=== PATIENT | female | born 1930 | race Two or more races ===

== ENCOUNTER 2016-10-12 06:27 | Inpatient (IN) | payer MEDICARE, MEDICAID ==
[~2016-10-12] VITALS: Ht 160 cm; Wt 98.3 kg
[~2016-10-12 06:27] MED LIST: ASPI-231 PO; FURO20TA GT; GAB400C PO; GLIP-115 PO; ISOS30TA4 PO; LEV50T PO; LOSA50TA6 PO
[2016-10-12] MEDS ORDERED: SODIUM CHLORIDE 0.9% 1,000 ML IVB ONE (06:51)
[2016-10-12 08:48] LABS: Basophils # (auto) 0 uL; Basophils % (auto) 0.4 % (0.0-2.0); Eosinophils # (auto) 0.1 uL; Eosinophils % (auto) 0.9 % (0.0-7.0); Hematocrit 37.2 % (36.0-46.0); Hemoglobin 11.7 g/dL (12.2-16.2); Lymphocytes # (auto) 1.8 uL; Lymphocytes % (auto) 18.5 % (10.0-50.0); Mean Corpuscular Hemoglobin 30.3 pg (28.0-32.0); Mean Corpuscular Hgb Conc. 31.4 g/dL (32.0-36.0); Mean Corpuscular Volume 96.5 fL (80.0-100.0); Mean Platelet Volume 8.7 fL (7.4-10.4); Monocytes # (auto) 0.7 uL; Monocytes % (auto) 6.7 % (0.0-12.0); Neutrophils # (auto) 7.2 uL; Neutrophils % (auto) 73.5 % (37.0-80.0); Platelet Count (auto) 230 10^3/uL (140-450); Red Cell Distribution Width 16.1 % (11.6-16.0); White Blood Cell 9.8 10^3/uL (4.4-10.8)
[2016-10-12 08:57] LABS: Albumin 3.3 g/dL (3.4-5.0); Anion Gap 8 (5-15); Carbon Dioxide 30 mmol/L (21-32); Chloride 104 mmol/L (98-107); Glucose 134 mg/dL (74-106); Magnesium 2.2 mg/dL (1.6-2.6); Sodium 142 mmol/L (136-145)
[2016-10-12 09:00] LABS: Alkaline Phosphatase 78 U/L (45-117); Aspartate Aminotransferase 16 U/L (15-37); BUN/Creatinine Ratio 19.5; Bilirubin, Total 0.5 mg/dL (0.2-1.0); Blood Urea Nitrogen 25 mg/dL (7-18); GFR African American 51 mL/min; GFR Non-African American 42 mL/min; Total Protein 7.1 g/dL (6.4-8.2)
[2016-10-12 10:34] LABS: Urine Bilirubin Negative (Negative); Urine Blood Negative /uL (Negative); Urine Color Yellow (Yellow); Urine Glucose Normal (Normal); Urine Ketone Negative (Negative); Urine Nitrite Negative (Negative); Urine RBC 4 /hpf (0 - 4); Urine Squamous Epithelial Cell FEW /hpf (<5); Urine Urobilinogen Normal (Negative); Urine WBC Clumps PRESENT /hpf (None Seen); Urine pH 5.5 (5.0-8.0)
[2016-10-12] MEDS ORDERED: cefTRIAXone 1GM/50ML D5W 50 ML IV ONE ×2 (12:30→12:45)
[2016-10-12] MEDS ORDERED: TEMAZEPAM 15 MG CAP PO PRN (12:45)
[2016-10-12] MEDS ORDERED: HYDROcodone-ACET 5/325MG TAB PO PRN (12:45)
[2016-10-12] MEDS ORDERED: LORazepam 0.5 MG TAB PO PRN (12:45)
[2016-10-12] MEDS ORDERED: LACTULOSE 20Gm/30ML SOLN PO PRN (12:45)
[2016-10-12] MEDS ORDERED: ACETAMINOPHEN 500 MG TAB PO PRN (12:45)
[2016-10-12] MEDS ORDERED: MORPHINE SULF INJ 2 MG/ML SYRINGE 1ML IV PRN ×2 (12:45)
[2016-10-12] MEDS ORDERED: PROMETHAZINE HCL 25 MG/ML 1ML IV PRN (12:45)
[2016-10-12] MEDS ORDERED: DEXTROSE (50%) 50ML SYRG IV PRN (12:45)
[2016-10-12] MEDS ORDERED: NITROGLYCERIN 0.4 MG SL TAB SL PRN (12:45)
[2016-10-12] MEDS ORDERED: LEVOTHYROXINE SODIUM 50 MCG TAB PO ONE (14:15)
[2016-10-12] MEDS ORDERED: ASPirin-EC 81 mg tab PO ONE (14:15)
[2016-10-12] MEDS: FAMOTIDINE 20 MG TAB PO SCH (14:56)
[2016-10-12] MEDS: GABAPENTIN 300 MG CAP PO SCH ×2 (14:56→21:41)
[2016-10-12] MEDS: ENOXAPARIN SOD 40 MG/0.4 ML SYRINGE SC SCH (14:57)
[2016-10-12 15:40] VITALS: BP 128/68
[2016-10-12 16:41] VITALS: BP 128/68
[2016-10-12] MEDS: InsuLIN REG 1unit/0.01ml Soln (100units/ml) SC SCH ×2 (17:00→22:46)
[2016-10-12] MEDS ORDERED: glipiZIDE 5 MG TAB PO SCH (17:00)
[2016-10-12] MEDS: ACCU-CHEK COMFORT CURVE STRIP VI SCH ×2 (17:25→21:41)
[2016-10-12 21:16] VITALS: BP 123/64
[2016-10-12] MEDS: ATORVASTATIN 20 MG TAB PO SCH (21:41)
[2016-10-13 04:57] VITALS: BP 152/65
[2016-10-13] MEDS: InsuLIN REG 1unit/0.01ml Soln (100units/ml) SC SCH ×4 (06:00→22:34)
[2016-10-13] MEDS: ACCU-CHEK COMFORT CURVE STRIP VI SCH ×4 (06:00→22:32)
[2016-10-13 09:00] VITALS: BP 132/61
[2016-10-13] MEDS: cefTRIAXone 1GM/50ML D5W 50 ML IV SCH (09:28)
[2016-10-13] MEDS: ASPirin-EC 81 mg tab PO SCH (09:29)
[2016-10-13] MEDS: GABAPENTIN 300 MG CAP PO SCH ×2 (09:30→22:31)
[2016-10-13] MEDS: FAMOTIDINE 20 MG TAB PO SCH (09:30)
[2016-10-13] MEDS: LEVOTHYROXINE SODIUM 50 MCG TAB PO SCH (09:30)
[2016-10-13] MEDS: ISOSORBIDE MONONITRATE 60 MG TAB PO SCH (09:30)
[2016-10-13] MEDS: ENOXAPARIN SOD 40 MG/0.4 ML SYRINGE SC SCH (09:31)
[2016-10-13] MEDS: LOSARTAN POTASSIUM 50 MG TAB PO SCH (09:36)
[2016-10-13 12:57] LABS: BUN/Creatinine Ratio 18.9; Potassium 4.3 mmol/L (3.5-5.1)
[2016-10-13 13:00] VITALS: BP 135/68
[2016-10-13 13:06] LABS: B-Type Natriuretic Peptide 70.1 pg/mL (0-100)
[2016-10-13 17:00] VITALS: BP 104/56
[2016-10-13 21:51] VITALS: BP 112/52
[2016-10-13] MEDS: ATORVASTATIN 20 MG TAB PO SCH (22:31)
[2016-10-14 05:00] VITALS: BP 113/63
[2016-10-14] MEDS: InsuLIN REG 1unit/0.01ml Soln (100units/ml) SC SCH ×4 (05:25→21:00)
[2016-10-14] MEDS: ACCU-CHEK COMFORT CURVE STRIP VI SCH ×4 (05:26→20:59)
[2016-10-14] MEDS: ENOXAPARIN SOD 40 MG/0.4 ML SYRINGE SC SCH (09:31)
[2016-10-14] MEDS: cefTRIAXone 1GM/50ML D5W 50 ML IV SCH (09:31)
[2016-10-14] MEDS: GABAPENTIN 300 MG CAP PO SCH ×2 (09:32→20:58)
[2016-10-14] MEDS: FAMOTIDINE 20 MG TAB PO SCH (09:33)
[2016-10-14] MEDS: LOSARTAN POTASSIUM 50 MG TAB PO SCH (09:33)
[2016-10-14] MEDS: ASPirin-EC 81 mg tab PO SCH (09:33)
[2016-10-14] MEDS: LEVOTHYROXINE SODIUM 50 MCG TAB PO SCH (09:33)
[2016-10-14] MEDS: ISOSORBIDE MONONITRATE 60 MG TAB PO SCH (09:34)
[2016-10-14 11:59] VITALS: BP 121/61
[2016-10-14 16:23] VITALS: BP 137/69
[2016-10-14] MEDS: ATORVASTATIN 20 MG TAB PO SCH (20:58)
[2016-10-15 05:00] VITALS: BP 128/75
[2016-10-15] MEDS: InsuLIN REG 1unit/0.01ml Soln (100units/ml) SC SCH ×3 (05:42→18:22)
[2016-10-15] MEDS: ACCU-CHEK COMFORT CURVE STRIP VI SCH ×3 (05:42→18:07)
[2016-10-15 09:00] VITALS: BP 128/54
[2016-10-15] MEDS: cefTRIAXone 1GM/50ML D5W 50 ML IV SCH (09:17)
[2016-10-15] MEDS: FAMOTIDINE 20 MG TAB PO SCH (09:30)
[2016-10-15] MEDS: ENOXAPARIN SOD 40 MG/0.4 ML SYRINGE SC SCH (09:30)
[2016-10-15] MEDS: GABAPENTIN 300 MG CAP PO SCH (09:30)
[2016-10-15] MEDS: LEVOTHYROXINE SODIUM 50 MCG TAB PO SCH (09:31)
[2016-10-15] MEDS: ASPirin-EC 81 mg tab PO SCH (09:31)
[2016-10-15] MEDS: ISOSORBIDE MONONITRATE 60 MG TAB PO SCH (09:32)
[2016-10-15] MEDS: LOSARTAN POTASSIUM 50 MG TAB PO SCH (09:32)
[2016-10-15 13:00] VITALS: BP 138/80
[2016-10-15 15:24] VITALS: BP 128/54
[2016-10-15 17:00] VITALS: BP 105/56
== END 2016-10-15 20:00 | disposition home or self-care (01) | DRG 689 ==
LOC: EDUNIT# 06:27 → EDBD 06:27 → ER 06:33 → TELE 06:34 → TELE-EAST 15:20
PROVIDERS: ADMIT Internal Medicine; ATTEND Internal Medicine
DX: N39.0 Urinary tract infection, site not specified (principal); G93.40 Encephalopathy, unspecified; I12.9 Hypertensive chronic kidney disease with stage 1 through stage 4 chronic kidney disease, or unspecified chronic kidney disease; N18.3 Chronic kidney disease, stage 3 (moderate); W19.XXXA Unspecified fall, initial encounter; M19.90 Unspecified osteoarthritis, unspecified site; E11.22 Type 2 diabetes mellitus with diabetic chronic kidney disease; E66.01 Morbid (severe) obesity due to excess calories; I25.10 Atherosclerotic heart disease of native coronary artery without angina pectoris; E11.21 Type 2 diabetes mellitus with diabetic nephropathy; E03.9 Hypothyroidism, unspecified; Z90.710 Acquired absence of both cervix and uterus; Z82.49 Family history of ischemic heart disease and other diseases of the circulatory system; Y92.009 Unspecified place in unspecified non-institutional (private) residence as the place of occurrence of the external cause
CPT/HCPCS: 36415; 70450; 71010; 73030; 80048; 80053; 80320; 81001; 82550; 82607; 82962; 83036; 83735; 83880; 84443; 85025; 85652; 87040; 93005; 94761; 95819; 96361; 96365; 97001; 97110; 97116; 97530; J0696; J1815

== ENCOUNTER 2017-04-22 13:21 | Inpatient (IN) | payer MEDICARE, MEDICAID ==
[~2017-04-22] VITALS: Ht 160 cm; Wt 95.4 kg
[~2017-04-22 13:21] MED LIST changes: +ALBU18 IN; +ALEN70TA55 PO; +ALL100T PO; -ASPI-231 PO; +ATOR1TAB PO; +BACL10TA PO; +CITA10TA70 PO; +DICL1GEL26 TD; +FLU220IH IN; -FURO20TA GT; +FURO20TA3 PO; -GAB400C PO; +GABA-494 PO; +HYDR-391 PO; -ISOS30TA4 PO; +MONT10TA34 PO; +RIVA20TA PO; +[UNRECOGNIZED DRUG - CODE] TOP
[2017-04-22 14:08] LABS: Basophils # (auto) 0 uL; Basophils % (auto) 0.3 % (0.0-2.0); CONDITION Y; Eosinophils # (auto) 0.1 uL; Eosinophils % (auto) 0.5 % (0.0-7.0); Hematocrit 35.6 % (36.0-46.0); Hemoglobin 11.8 g/dL (12.2-16.2); Lymphocytes # (auto) 4.8 uL; Lymphocytes % (auto) 33.1 % (10.0-50.0); Mean Corpuscular Hemoglobin 32.1 pg (28.0-32.0); Mean Corpuscular Hgb Conc. 33.2 g/dL (32.0-36.0); Mean Corpuscular Volume 96.5 fL (80.0-100.0); Mean Platelet Volume 8.5 fL (7.4-10.4); Monocytes # (auto) 1.3 uL; Monocytes % (auto) 9.2 % (0.0-12.0); Neutrophils # (auto) 8.2 uL; Neutrophils % (auto) 56.9 % (37.0-80.0); Platelet Count (auto) 289 10^3/uL (140-450); Red Cell Distribution Width 16.5 % (11.6-16.0); White Blood Cell 14.5 10^3/uL (4.4-10.8)
[2017-04-22] MEDS ORDERED: SODIUM CHLORIDE 0.9% 1,000 ML IV ONE (14:30)
[2017-04-22 14:32] LABS: Albumin 3.3 g/dL (3.4-5.0); Alkaline Phosphatase 54 U/L (45-117); Anion Gap 8 (5-15); Aspartate Aminotransferase 30 U/L (15-37); BUN/Creatinine Ratio 31.3; Bilirubin, Total 0.5 mg/dL (0.2-1.0); Blood Urea Nitrogen 41 mg/dL (7-18); Calcium 9.6 mg/dL (8.5-10.1); Carbon Dioxide 28 mmol/L (21-32); Chloride 102 mmol/L (98-107); GFR African American 50 mL/min; GFR Non-African American 41 mL/min; Glucose 116 mg/dL (74-106); Potassium 3.7 mmol/L (3.5-5.1); Sodium 138 mmol/L (136-145); Total Protein 6.4 g/dL (6.4-8.2)
[2017-04-22 15:25] LABS: INR 0.98 (0.9-1.15); Partial Thromboplastin Time 21.8 sec (22.64-33.71); Prothrombin Time 10.7 sec (9.37-12.3)
[2017-04-22] MEDS ORDERED: NITROGLYCERIN 0.4 MG SL TAB SL PRN (23:00)
[2017-04-22] MEDS ORDERED: ALBUTEROL SULF 2.5 MG/0.5ML(0.5%) NEB SOLN NEB PRN (23:00)
[2017-04-22] MEDS ORDERED: DOCUSATE SOD 100 MG CAP PO PRN (23:00)
[2017-04-22] MEDS ORDERED: MORPHINE SULF INJ 2 MG/ML SYRINGE 1ML IV PRN (23:00)
[2017-04-22] MEDS ORDERED: DEXTROSE (50%) 50ML SYRG IV PRN (23:00)
[2017-04-22] MEDS ORDERED: HYDROcodone-ACET 5/325MG TAB PO PRN (23:00)
[2017-04-22] MEDS ORDERED: ONDANSETRON HCL 4 MG/2 ML VIAL IV PRN (23:00)
[2017-04-23] MEDS: ACCU-CHEK COMFORT CURVE STRIP VI SCH ×4 (00:28→16:58)
[2017-04-23 01:20] LABS: Urine Bilirubin Negative (Negative); Urine Blood Negative /uL (Negative); Urine Color Yellow (Yellow); Urine Glucose Normal (Normal); Urine Ketone Negative (Negative); Urine Mucus FEW (None Seen); Urine Nitrite Negative (Negative); Urine RBC <1 /hpf (0 - 4); Urine Squamous Epithelial Cell FEW /hpf (<5); Urine Urobilinogen Normal (Negative); Urine pH 5.5 (5.0-8.0)
[2017-04-23] MEDS: InsuLIN REG 1unit/0.01ml Soln (100units/ml) SC SCH ×4 (06:00→16:58)
[2017-04-23] MEDS: FUROSEMIDE 20 MG TAB PO SCH ×2 (06:27→17:30)
[2017-04-23] MEDS: glipiZIDE 5 MG TAB PO SCH ×2 (06:42→17:30)
[2017-04-23] MEDS: LEVOTHYROXINE SODIUM 50 MCG TAB PO SCH (06:42)
[2017-04-23] MEDS ORDERED: PATIENTS OWN MEDICATION (xarelto 20 MG) PO SCH (10:00)
[2017-04-23] MEDS: MONTELUKAST SODIUM 10 MG TAB PO SCH (10:16)
[2017-04-23] MEDS: FAMOTIDINE 20 MG TAB PO SCH ×2 (10:16→22:07)
[2017-04-23] MEDS: LOSARTAN POTASSIUM 50 MG TAB PO SCH (10:16)
[2017-04-23] MEDS ORDERED: LORazepam 2MG/ML-1ML VIAL IV PRN (14:15)
[2017-04-23 14:50] LABS: Basophils # (auto) 0 uL; Basophils % (auto) 0.2 % (0.0-2.0); CONDITION Y; Eosinophils # (auto) 0.1 uL; Eosinophils % (auto) 0.8 % (0.0-7.0); Hematocrit 37.4 % (36.0-46.0); Hemoglobin 12.2 g/dL (12.2-16.2); Lymphocytes # (auto) 2.4 uL; Lymphocytes % (auto) 19.5 % (10.0-50.0); Mean Corpuscular Hemoglobin 31.7 pg (28.0-32.0); Mean Corpuscular Hgb Conc. 32.6 g/dL (32.0-36.0); Mean Corpuscular Volume 97.2 fL (80.0-100.0); Mean Platelet Volume 8.5 fL (7.4-10.4); Monocytes # (auto) 0.9 uL; Monocytes % (auto) 7.3 % (0.0-12.0); Neutrophils % (auto) 72.2 % (37.0-80.0); Platelet Count (auto) 275 10^3/uL (140-450); Red Cell Distribution Width 17.2 % (11.6-16.0); White Blood Cell 12.5 10^3/uL (4.4-10.8)
[2017-04-23 15:30] LABS: Cholesterol 154 mg/dL (< 200); HDL Cholesterol 48 mg/dL (40-59); LDL Cholesterol 74 mg/dL (< 100); Triglycerides 274 mg/dL (< 150)
[2017-04-23 15:43] LABS: Albumin 3.3 g/dL (3.4-5.0); BUN/Creatinine Ratio 35.5; Bilirubin, Total 0.6 mg/dL (0.2-1.0); Calcium 9.2 mg/dL (8.5-10.1); Potassium 3.8 mmol/L (3.5-5.1); Total Protein 6.8 g/dL (6.4-8.2)
[2017-04-23 15:46] VITALS: BP 132/62
[2017-04-23] MEDS ORDERED: ASPI81CH43 GT (16:16)
[2017-04-23] MEDS ORDERED: POTA10TA51 PO (16:24)
[2017-04-23 17:00] VITALS: BP 132/62
[2017-04-23] MEDS: RIVAROXABAN 20 MG TAB PO SCH (17:32)
[2017-04-23 19:58] VITALS: BP 144/66
[2017-04-23 22:00] VITALS: BP 124/64
[2017-04-23] MEDS: ATORVASTATIN 20 MG TAB PO SCH (22:06)
[2017-04-24 04:30] VITALS: BP 150/67
[2017-04-24] MEDS: InsuLIN REG 1unit/0.01ml Soln (100units/ml) SC SCH ×4 (06:00→18:00)
[2017-04-24] MEDS: ACCU-CHEK COMFORT CURVE STRIP VI SCH ×4 (06:19→18:08)
[2017-04-24] MEDS: FUROSEMIDE 20 MG TAB PO SCH ×2 (06:36→18:07)
[2017-04-24] MEDS: glipiZIDE 5 MG TAB PO SCH ×2 (06:37→18:08)
[2017-04-24] MEDS: LEVOTHYROXINE SODIUM 50 MCG TAB PO SCH (06:37)
[2017-04-24 09:00] VITALS: BP 134/62
[2017-04-24 10:11] LABS: Temperature: 23.3 C (20.0-25.0)
[2017-04-24] MEDS: MONTELUKAST SODIUM 10 MG TAB PO SCH (10:29)
[2017-04-24] MEDS: FAMOTIDINE 20 MG TAB PO SCH ×2 (10:29→21:37)
[2017-04-24] MEDS: LOSARTAN POTASSIUM 50 MG TAB PO SCH (10:29)
[2017-04-24 13:00] VITALS: BP 142/70
[2017-04-24 17:10] VITALS: BP 112/55
[2017-04-24 20:00] VITALS: BP 110/59
[2017-04-24] MEDS: TEMAZEPAM 15 MG CAP PO PRN (21:36)
[2017-04-24] MEDS: ATORVASTATIN 20 MG TAB PO SCH (21:37)
[2017-04-24] MEDS: RIVAROXABAN 20 MG TAB PO SCH (21:37)
[2017-04-24 21:51] VITALS: BP 110/59
[2017-04-25] VITALS (7 sets, daily range): BP systolic 124–186; BP diastolic 54–78
[2017-04-25] MEDS: glipiZIDE 5 MG TAB PO SCH ×2 (05:31→18:40)
[2017-04-25] MEDS: FUROSEMIDE 20 MG TAB PO SCH ×2 (05:31→18:41)
[2017-04-25] MEDS: LEVOTHYROXINE SODIUM 50 MCG TAB PO SCH (05:32)
[2017-04-25] MEDS: InsuLIN REG 1unit/0.01ml Soln (100units/ml) SC SCH ×4 (05:33→18:00)
[2017-04-25] MEDS: ACETAMINOPHEN 325 MG TAB PO PRN (05:33)
[2017-04-25] MEDS: ACCU-CHEK COMFORT CURVE STRIP VI SCH ×4 (06:00→18:00)
[2017-04-25] MEDS: FAMOTIDINE 20 MG TAB PO SCH ×2 (10:39→21:18)
[2017-04-25] MEDS: MONTELUKAST SODIUM 10 MG TAB PO SCH (10:40)
[2017-04-25] MEDS: LOSARTAN POTASSIUM 50 MG TAB PO SCH (10:40)
[2017-04-25] MEDS: ATORVASTATIN 20 MG TAB PO SCH (21:21)
[2017-04-26] VITALS (8 sets, daily range): BP systolic 105–138; BP diastolic 53–73
[2017-04-26] MEDS: ACCU-CHEK COMFORT CURVE STRIP VI SCH ×5 (00:29→23:43)
[2017-04-26] MEDS: TEMAZEPAM 15 MG CAP PO PRN (00:43)
[2017-04-26] MEDS: InsuLIN REG 1unit/0.01ml Soln (100units/ml) SC SCH ×5 (06:00→23:43)
[2017-04-26] MEDS: FUROSEMIDE 20 MG TAB PO SCH ×2 (06:21→17:55)
[2017-04-26] MEDS: glipiZIDE 5 MG TAB PO SCH ×2 (06:22→17:56)
[2017-04-26] MEDS: LEVOTHYROXINE SODIUM 50 MCG TAB PO SCH (06:23)
[2017-04-26] MEDS: FAMOTIDINE 20 MG TAB PO SCH ×2 (11:09→21:01)
[2017-04-26] MEDS: LOSARTAN POTASSIUM 50 MG TAB PO SCH (11:09)
[2017-04-26] MEDS: MONTELUKAST SODIUM 10 MG TAB PO SCH (11:09)
[2017-04-26] MEDS: ENOXAPARIN SOD 40 MG/0.4 ML SYRINGE SC SCH (11:09)
[2017-04-26 13:48] LABS: BUN/Creatinine Ratio 25.7; Calcium 9.7 mg/dL (8.5-10.1)
[2017-04-26] MEDS: ATORVASTATIN 20 MG TAB PO SCH (21:01)
[2017-04-27] VITALS (7 sets, daily range): BP systolic 93–156; BP diastolic 47–99
[2017-04-27] MEDS: ACCU-CHEK COMFORT CURVE STRIP VI SCH ×3 (05:41→18:27)
[2017-04-27] MEDS: InsuLIN REG 1unit/0.01ml Soln (100units/ml) SC SCH ×3 (05:59→18:00)
[2017-04-27] MEDS: FUROSEMIDE 20 MG TAB PO SCH ×2 (06:25→18:40)
[2017-04-27] MEDS: glipiZIDE 5 MG TAB PO SCH ×2 (06:25→18:39)
[2017-04-27] MEDS: LEVOTHYROXINE SODIUM 50 MCG TAB PO SCH (06:26)
[2017-04-27] MEDS: ENOXAPARIN SOD 40 MG/0.4 ML SYRINGE SC SCH (09:52)
[2017-04-27] MEDS: FAMOTIDINE 20 MG TAB PO SCH ×2 (09:52→21:35)
[2017-04-27] MEDS: MONTELUKAST SODIUM 10 MG TAB PO SCH (09:52)
[2017-04-27] MEDS: LOSARTAN POTASSIUM 50 MG TAB PO SCH (09:53)
[2017-04-27] MEDS: TEMAZEPAM 15 MG CAP PO PRN (21:18)
[2017-04-27] MEDS: ATORVASTATIN 20 MG TAB PO SCH (21:35)
[2017-04-27] MEDS: DONEPEZIL HYDROCHLORIDE 5 MG TAB PO SCH (21:36)
[2017-04-27] MEDS: ACETAMINOPHEN 325 MG TAB PO PRN (21:39)
[2017-04-28] VITALS (7 sets, daily range): BP systolic 110–123; BP diastolic 50–61
[2017-04-28] MEDS: InsuLIN REG 1unit/0.01ml Soln (100units/ml) SC SCH ×5 (06:00→23:43)
[2017-04-28] MEDS: ACETAMINOPHEN 325 MG TAB PO PRN ×3 (06:18→22:03)
[2017-04-28] MEDS: FUROSEMIDE 20 MG TAB PO SCH ×2 (06:19→18:46)
[2017-04-28] MEDS: ACCU-CHEK COMFORT CURVE STRIP VI SCH ×5 (06:19→23:43)
[2017-04-28] MEDS: glipiZIDE 5 MG TAB PO SCH ×2 (06:34→18:00)
[2017-04-28] MEDS: LEVOTHYROXINE SODIUM 50 MCG TAB PO SCH (06:34)
[2017-04-28] MEDS: ENOXAPARIN SOD 40 MG/0.4 ML SYRINGE SC SCH (10:46)
[2017-04-28] MEDS: MONTELUKAST SODIUM 10 MG TAB PO SCH (10:46)
[2017-04-28] MEDS: LOSARTAN POTASSIUM 50 MG TAB PO SCH (10:47)
[2017-04-28] MEDS: FAMOTIDINE 20 MG TAB PO SCH ×2 (10:47→22:03)
[2017-04-28] MEDS: TEMAZEPAM 15 MG CAP PO PRN (22:03)
[2017-04-28] MEDS: DONEPEZIL HYDROCHLORIDE 5 MG TAB PO SCH (22:03)
[2017-04-28] MEDS: ATORVASTATIN 20 MG TAB PO SCH (22:03)
[2017-04-29] VITALS (7 sets, daily range): BP systolic 114–152; BP diastolic 55–75
[2017-04-29] MEDS: InsuLIN REG 1unit/0.01ml Soln (100units/ml) SC SCH ×4 (06:00→23:53)
[2017-04-29] MEDS: FUROSEMIDE 20 MG TAB PO SCH ×2 (06:14→19:43)
[2017-04-29] MEDS: ACCU-CHEK COMFORT CURVE STRIP VI SCH ×4 (06:14→23:53)
[2017-04-29] MEDS: glipiZIDE 5 MG TAB PO SCH ×2 (06:31→18:00)
[2017-04-29] MEDS: LEVOTHYROXINE SODIUM 50 MCG TAB PO SCH (06:31)
[2017-04-29] MEDS: ENOXAPARIN SOD 40 MG/0.4 ML SYRINGE SC SCH (09:51)
[2017-04-29] MEDS: LOSARTAN POTASSIUM 50 MG TAB PO SCH (09:51)
[2017-04-29] MEDS: FAMOTIDINE 20 MG TAB PO SCH ×2 (09:51→21:36)
[2017-04-29] MEDS: MONTELUKAST SODIUM 10 MG TAB PO SCH (09:51)
[2017-04-29] MEDS: ATORVASTATIN 20 MG TAB PO SCH (21:36)
[2017-04-29] MEDS: DONEPEZIL HYDROCHLORIDE 5 MG TAB PO SCH (21:36)
[2017-04-30 05:00] VITALS: BP 121/65
[2017-04-30] MEDS: FUROSEMIDE 20 MG TAB PO SCH (05:47)
[2017-04-30] MEDS: ACCU-CHEK COMFORT CURVE STRIP VI SCH ×3 (05:47→18:09)
[2017-04-30] MEDS: InsuLIN REG 1unit/0.01ml Soln (100units/ml) SC SCH ×3 (05:47→18:00)
[2017-04-30] MEDS: LEVOTHYROXINE SODIUM 50 MCG TAB PO SCH (06:42)
[2017-04-30] MEDS: glipiZIDE 5 MG TAB PO SCH (06:42)
[2017-04-30 07:02] LABS: Basophils # (auto) 0.1 uL; Basophils % (auto) 0.8 % (0.0-2.0); CONDITION Y; Eosinophils # (auto) 0.1 uL; Eosinophils % (auto) 0.8 % (0.0-7.0); Hematocrit 34.6 % (36.0-46.0); Hemoglobin 11.4 g/dL (12.2-16.2); Lymphocytes # (auto) 2.2 uL; Lymphocytes % (auto) 27.2 % (10.0-50.0); Mean Corpuscular Hemoglobin 31.9 pg (28.0-32.0); Mean Corpuscular Hgb Conc. 32.9 g/dL (32.0-36.0); Mean Platelet Volume 9.2 fL (7.4-10.4); Monocytes # (auto) 0.8 uL; Monocytes % (auto) 10.1 % (0.0-12.0); Neutrophils % (auto) 61.1 % (37.0-80.0); Platelet Count (auto) 189 10^3/uL (140-450); Red Cell Distribution Width 16.5 % (11.6-16.0); White Blood Cell 8.1 10^3/uL (4.4-10.8)
[2017-04-30 07:29] LABS: Albumin 3.2 g/dL (3.4-5.0); BUN/Creatinine Ratio 14.8; Bilirubin, Total 0.7 mg/dL (0.2-1.0); Calcium 9.3 mg/dL (8.5-10.1); Potassium 3.8 mmol/L (3.5-5.1); Total Protein 6.4 g/dL (6.4-8.2)
[2017-04-30 08:47] VITALS: BP 102/48
[2017-04-30] MEDS: MONTELUKAST SODIUM 10 MG TAB PO SCH (10:00)
[2017-04-30] MEDS: LOSARTAN POTASSIUM 50 MG TAB PO SCH (10:00)
[2017-04-30] MEDS: ENOXAPARIN SOD 40 MG/0.4 ML SYRINGE SC SCH (10:00)
[2017-04-30] MEDS: FAMOTIDINE 20 MG TAB PO SCH (10:00)
[2017-04-30 12:06] VITALS: BP 102/48
[2017-04-30 13:08] VITALS: BP 139/62
[2017-04-30 16:50] VITALS: BP 126/58
== END 2017-04-30 18:55 | disposition home or self-care (01) | DRG 42 ==
LOC: EDBD 13:21 → ER 13:26 → TELE 23:29 → TELE-EAST 04-23 15:37
PROVIDERS: ADMIT Nurse Practitioner; ATTEND Internal Medicine Pulmonary Disease
DX: G30.9 Alzheimer's disease, unspecified (principal); E44.0 Moderate protein-calorie malnutrition; E11.21 Type 2 diabetes mellitus with diabetic nephropathy; I13.0 Hypertensive heart and chronic kidney disease with heart failure and stage 1 through stage 4 chronic kidney disease, or unspecified chronic kidney disease; I50.9 Heart failure, unspecified; E66.01 Morbid (severe) obesity due to excess calories; E78.5 Hyperlipidemia, unspecified; F02.80 Dementia in other diseases classified elsewhere, unspecified severity, without behavioral disturbance, psychotic disturbance, mood disturbance, and anxiety; N18.3 Chronic kidney disease, stage 3 (moderate); E03.9 Hypothyroidism, unspecified; E11.22 Type 2 diabetes mellitus with diabetic chronic kidney disease; F41.9 Anxiety disorder, unspecified; I25.10 Atherosclerotic heart disease of native coronary artery without angina pectoris; J44.9 Chronic obstructive pulmonary disease, unspecified; J98.4 Other disorders of lung; M19.90 Unspecified osteoarthritis, unspecified site; N39.0 Urinary tract infection, site not specified; Z79.899 Other long term (current) drug therapy; Z82.49 Family history of ischemic heart disease and other diseases of the circulatory system; Z86.73 Personal history of transient ischemic attack (TIA), and cerebral infarction without residual deficits; Z90.710 Acquired absence of both cervix and uterus
CPT/HCPCS: 36415; 70450; 70551; 71010; 80048; 80053; 80061; 81001; 82607; 82746; 82962; 83735; 84439; 84443; 84484; 85025; 85610; 85730; 87040; 87081; 93005; 93886; 94761; 95819; 96360; 96361; 96372; 97116; 97530; J1815

== ENCOUNTER 2017-07-24 15:05 | Emergency (ER) | payer MEDICAID, MEDICARE ==
[~2017-07-24] VITALS: Ht 152.4 cm; Wt 108.9 kg
[~2017-07-24 15:05] MED LIST changes: +ASPI81CH43 GT; +POTA10TA51 PO
[2017-07-24 17:13] LABS: Basophils # (auto) 0.1 uL; Basophils % (auto) 1.3 % (0.0-2.0); Eosinophils # (auto) 0.1 uL; Eosinophils % (auto) 1.2 % (0.0-7.0); Hematocrit 36.2 % (36.0-46.0); Hemoglobin 11.3 g/dL (12.2-16.2); Lymphocytes # (auto) 2.3 uL; Lymphocytes % (auto) 23.3 % (10.0-50.0); Mean Corpuscular Hemoglobin 27.8 pg (28.0-32.0); Mean Corpuscular Hgb Conc. 31.3 g/dL (32.0-36.0); Mean Corpuscular Volume 88.9 fL (80.0-100.0); Mean Platelet Volume 8.2 fL (6.9-10.8); Monocytes # (auto) 0.8 uL; Neutrophils # (auto) 6.6 uL; Neutrophils % (auto) 66.2 % (37.0-80.0); Platelet Count (auto) 227 10^3/uL (140-450); Red Cell Distribution Width 19.1 % (11.8-14.3)
[2017-07-24 17:35] LABS: Albumin 3.5 g/dL (3.4-5.0); BUN/Creatinine Ratio 26.4; Bilirubin, Total 0.4 mg/dL (0.2-1.0); Calcium 9.7 mg/dL (8.5-10.1); Potassium 3.7 mmol/L (3.5-5.1); Total Protein 7.2 g/dL (6.4-8.2)
[2017-07-25 02:33] VITALS: BP 134/69
== END 2017-07-25 03:11 | disposition home or self-care (01) ==
LOC: ER 15:05
DX: F03.90 Unspecified dementia, unspecified severity, without behavioral disturbance, psychotic disturbance, mood disturbance, and anxiety (principal); R42 Dizziness and giddiness; I25.10 Atherosclerotic heart disease of native coronary artery without angina pectoris; I11.0 Hypertensive heart disease with heart failure; I50.9 Heart failure, unspecified; E11.9 Type 2 diabetes mellitus without complications; E78.5 Hyperlipidemia, unspecified; E07.9 Disorder of thyroid, unspecified; Z90.710 Acquired absence of both cervix and uterus; Z90.49 Acquired absence of other specified parts of digestive tract
CPT/HCPCS: 36415; 70450; 80053; 85025

== ENCOUNTER 2017-12-25 04:19 | Inpatient (IN) | payer MEDICARE, MEDICAID ==
[~2017-12-25] VITALS: Ht 152.4 cm; Wt 98.4 kg
[~2017-12-25 04:19] MED LIST changes: -GABA-494 PO; +GABA100C9 PO; -HYDR-391 PO; +HYDR-392 PO
[2017-12-25 05:45] LABS: Basophils # (auto) 0.1 uL; Basophils % (auto) 0.8 % (0.0-2.0); Eosinophils # (auto) 0.1 uL; Hematocrit 42.2 % (36.0-46.0); Hemoglobin 13.9 g/dL (12.2-16.2); Lymphocytes # (auto) 2.7 uL; Lymphocytes % (auto) 31.9 % (10.0-50.0); Mean Corpuscular Hemoglobin 32.3 pg (28.0-32.0); Mean Corpuscular Hgb Conc. 32.9 g/dL (32.0-36.0); Mean Corpuscular Volume 98.1 fL (80.0-100.0); Monocytes # (auto) 0.7 uL; Monocytes % (auto) 8.8 % (0.0-12.0); Neutrophils # (auto) 4.8 uL; Neutrophils % (auto) 57.5 % (37.0-80.0); Nucleated Red Blood Cells % 0.2 %; Platelet Count (auto) 190 10^3/uL (140-450); Red Cell Distribution Width 15.6 % (11.8-14.3); White Blood Cell 8.4 10^3/uL (4.4-10.8)
[2017-12-25 06:12] LABS: Alanine Aminotransferase 37 U/L (13-56); Albumin 2.9 g/dL (3.4-5.0); Anion Gap 6 (5-15); Aspartate Aminotransferase 20 U/L (15-37); BUN/Creatinine Ratio 27.6; Blood Urea Nitrogen 32 mg/dL (7-18); Calcium 9.8 mg/dL (8.5-10.1); Carbon Dioxide 27 mmol/L (21-32); Chloride 106 mmol/L (98-107); GFR African American 57 mL/min; GFR Non-African American 47 mL/min; Glucose 130 mg/dL (74-106); Magnesium 2.3 mg/dL (1.6-2.6); Sodium 139 mmol/L (136-145)
[2017-12-25 06:14] LABS: Alkaline Phosphatase 64 U/L (45-117); Bilirubin, Total 0.4 mg/dL (0.2-1.0); Total Protein 6.3 g/dL (6.4-8.2)
[2017-12-25] MEDS ORDERED: NITROGLYCERIN 0.2MG/HR TOPICAL PATCH TD ONE (10:15)
[2017-12-25] MEDS ORDERED: ALBUTEROL SULF 2.5 MG/0.5ML(0.5%) NEB SOLN NEB PRN (10:15)
[2017-12-25] MEDS ORDERED: BACLOFEN 10 MG TAB PO PRN (10:15)
[2017-12-25] MEDS ORDERED: ONDANSETRON HCL 4 MG/2 ML VIAL IV PRN (10:15)
[2017-12-25] MEDS ORDERED: METOPROLOL TARTRATE 25 MG TAB PO ONE (10:15)
[2017-12-25] MEDS ORDERED: IPRATROPIUM BROM 0.5 MG/2.5ML INH SOL NEB PRN (10:15)
[2017-12-25] MEDS ORDERED: NITROGLYCERIN 0.4 MG SL TAB SL PRN (10:15)
[2017-12-25] MEDS ORDERED: MORPHINE SULFATE 4 MG/ML SYR/VIAL IV PRN (10:15)
[2017-12-25] MEDS ORDERED: DEXTROSE (50%) 50ML SYRG IV PRN (10:30)
[2017-12-25] MEDS: CITALOPRAM HYDROBR 20 MG TAB PO SCH (11:04)
[2017-12-25] MEDS: ASPirin 81 mg TAB PO SCH (11:04)
[2017-12-25] MEDS: LOSARTAN POTASSIUM 50 MG TAB PO SCH (11:04)
[2017-12-25] MEDS: GABAPENTIN 100 MG CAP PO SCH ×2 (11:04→21:47)
[2017-12-25] MEDS: LEVOTHYROXINE SODIUM 50 MCG TAB PO SCH (11:05)
[2017-12-25] MEDS: MONTELUKAST SODIUM 10 MG TAB PO SCH (11:05)
[2017-12-25 11:11] LABS: INR 0.98 (0.9-1.15); Partial Thromboplastin Time 27.5 sec (22.64-33.71); Prothrombin Time 10.7 sec (9.37-12.3)
[2017-12-25 11:17] LABS: Cholesterol 183 mg/dL (< 200); HDL Cholesterol 48 mg/dL (40-59); LDL Cholesterol 123 mg/dL (< 100); Triglycerides 181 mg/dL (< 150)
[2017-12-25] MEDS: InsuLIN REG 1unit/0.01ml Soln (100units/ml) SC SCH ×3 (11:30→21:57)
[2017-12-25] MEDS: ACCU-CHEK COMFORT CURVE STRIP VI SCH ×3 (11:40→21:58)
[2017-12-25 15:02] VITALS: BP 141/74
[2017-12-25 16:06] VITALS: BP 121/61
[2017-12-25 16:24] VITALS: BP 121/61
[2017-12-25] MEDS: RIVAROXABAN 20 MG TAB PO SCH (17:29)
[2017-12-25] MEDS ORDERED: BACL10TA PO (17:56)
[2017-12-25] MEDS ORDERED: ALLO300T2 PO (17:56)
[2017-12-25] MEDS ORDERED: DONE5TAB31 PO (17:56)
[2017-12-25] MEDS ORDERED: LOSA50TA6 PO (17:56)
[2017-12-25] MEDS ORDERED: FLU220IH INH (17:56)
[2017-12-25] MEDS ORDERED: ALBUAER3 IN (17:56)
[2017-12-25] MEDS ORDERED: POTA10TA51 PO (17:56)
[2017-12-25] MEDS ORDERED: FURO40TA PO (17:56)
[2017-12-25] MEDS ORDERED: ALEN35TA18 PO (17:56)
[2017-12-25 21:30] VITALS: BP 110/53
[2017-12-25] MEDS: METOPROLOL TARTRATE 25 MG TAB PO SCH (21:47)
[2017-12-25] MEDS: ATORVASTATIN 20 MG TAB PO SCH (21:47)
[2017-12-25] MEDS: MORPHINE SULFATE 4 MG/ML SYR/VIAL IV PRN (21:54)
[2017-12-26 05:00] VITALS: BP 114/55
[2017-12-26 05:59] LABS: Basophils # (auto) 0.1 uL; Basophils % (auto) 1.2 % (0.0-2.0); Eosinophils # (auto) 0.1 uL; Eosinophils % (auto) 0.8 % (0.0-7.0); Hematocrit 41.5 % (36.0-46.0); Hemoglobin 13.5 g/dL (12.2-16.2); Lymphocytes # (auto) 2.4 uL; Lymphocytes % (auto) 28.9 % (10.0-50.0); Mean Corpuscular Hemoglobin 31.8 pg (28.0-32.0); Mean Corpuscular Hgb Conc. 32.5 g/dL (32.0-36.0); Mean Corpuscular Volume 97.8 fL (80.0-100.0); Monocytes # (auto) 0.7 uL; Monocytes % (auto) 8.8 % (0.0-12.0); Neutrophils % (auto) 60.3 % (37.0-80.0); Nucleated Red Blood Cells % 0.1 %; Platelet Count (auto) 188 10^3/uL (140-450); Red Blood Cells 4.24 10^6/uL (4.0-5.20); Red Cell Distribution Width 15.8 % (11.8-14.3); White Blood Cell 8.4 10^3/uL (4.4-10.8)
[2017-12-26] MEDS: InsuLIN REG 1unit/0.01ml Soln (100units/ml) SC SCH ×4 (06:14→21:44)
[2017-12-26] MEDS: ACCU-CHEK COMFORT CURVE STRIP VI SCH ×4 (06:14→21:37)
[2017-12-26 06:18] LABS: Calcium 10.4 mg/dL (8.5-10.1); Potassium 4.1 mmol/L (3.5-5.1)
[2017-12-26] MEDS ORDERED: ADENOSINE 79 MG in GIVE UN-DILUTED 0 ML IV STA (08:36)
[2017-12-26 09:00] VITALS: BP 133/64
[2017-12-26 09:49] VITALS: BP 126/51
[2017-12-26] MEDS ORDERED: CITALOPRAM HYDROBROMIDE 10 MG PO SCH (10:00)
[2017-12-26] MEDS ORDERED: NITROGLYCERIN 0.2MG/HR TOPICAL PATCH TD SCH (10:00)
[2017-12-26] MEDS ORDERED: FUROSEMIDE 40 MG TAB PO ONE (10:45)
[2017-12-26] MEDS ORDERED: POTASSIUM CHL 20 Meq TABLET PO ONE (10:45)
[2017-12-26] MEDS: METOPROLOL TARTRATE 25 MG TAB PO SCH ×2 (10:51→21:37)
[2017-12-26] MEDS: GABAPENTIN 100 MG CAP PO SCH ×2 (11:11→21:37)
[2017-12-26] MEDS: MONTELUKAST SODIUM 10 MG TAB PO SCH (11:11)
[2017-12-26] MEDS: LEVOTHYROXINE SODIUM 50 MCG TAB PO SCH (11:11)
[2017-12-26] MEDS: ASPirin 81 mg TAB PO SCH (11:12)
[2017-12-26] MEDS: CITALOPRAM HYDROBR 20 MG TAB PO SCH (11:12)
[2017-12-26] MEDS: LOSARTAN POTASSIUM 50 MG TAB PO SCH (11:13)
[2017-12-26 13:00] VITALS: BP 131/61
[2017-12-26 17:00] VITALS: BP 128/66
[2017-12-26] MEDS: RIVAROXABAN 20 MG TAB PO SCH (17:47)
[2017-12-26] MEDS: ATORVASTATIN 20 MG TAB PO SCH (21:36)
[2017-12-26] MEDS ORDERED: DONEPEZIL HYDROCHLORIDE 5 MG TAB PO SCH (22:00)
[2017-12-26 22:45] VITALS: BP 124/64
[2017-12-27 05:06] VITALS: BP 149/74
[2017-12-27] MEDS ORDERED: diphenhdrAMINE HCL 50 MG/1 ML VL IV ONE (06:00)
[2017-12-27] MEDS: InsuLIN REG 1unit/0.01ml Soln (100units/ml) SC SCH ×3 (06:21→17:00)
[2017-12-27] MEDS: ACCU-CHEK COMFORT CURVE STRIP VI SCH ×3 (06:21→18:02)
[2017-12-27 07:07] LABS: Basophils # (auto) 0.1 uL; Basophils % (auto) 0.9 % (0.0-2.0); Eosinophils # (auto) 0.1 uL; Eosinophils % (auto) 0.6 % (0.0-7.0); Hematocrit 40.8 % (36.0-46.0); Hemoglobin 13.4 g/dL (12.2-16.2); Lymphocytes # (auto) 2.2 uL; Lymphocytes % (auto) 27.5 % (10.0-50.0); Mean Corpuscular Hgb Conc. 32.9 g/dL (32.0-36.0); Mean Corpuscular Volume 97.1 fL (80.0-100.0); Monocytes # (auto) 0.8 uL; Monocytes % (auto) 9.7 % (0.0-12.0); Neutrophils # (auto) 4.9 uL; Neutrophils % (auto) 61.3 % (37.0-80.0); Nucleated Red Blood Cells % 0.1 %; Platelet Count (auto) 157 10^3/uL (140-450); Red Cell Distribution Width 15.9 % (11.8-14.3); White Blood Cell 8.1 10^3/uL (4.4-10.8)
[2017-12-27 07:15] LABS: BUN/Creatinine Ratio 27.7; Calcium 9.4 mg/dL (8.5-10.1)
[2017-12-27] MEDS: HYDROcodone-ACET 5/325MG TAB PO PRN ×2 (07:48→16:30)
[2017-12-27] MEDS: MORPHINE SULFATE 4 MG/ML SYR/VIAL IV PRN ×3 (08:40→15:55)
[2017-12-27 08:45] VITALS: BP 130/73
[2017-12-27] MEDS ORDERED: IOHEXOL 350 MG/ML 100ML IJ ONE (09:59)
[2017-12-27] MEDS ORDERED: LIDOCAINE HCL 2 %PF INJ 10ML AMP IJ ONE (09:59)
[2017-12-27] MEDS ORDERED: FUROSEMIDE 40 MG TAB PO SCH (10:00)
[2017-12-27] MEDS ORDERED: POTASSIUM CHL 20 Meq TABLET PO SCH (10:00)
[2017-12-27] MEDS ORDERED: SODIUM CHL 0.9% 0 ML ONE (10:27)
[2017-12-27] MEDS ORDERED: MIDAZOLAM HCL 1MG/1ML-2 ML VIAL ONE (10:27)
[2017-12-27] MEDS ORDERED: fentaNYL CITRATE 100 MCG/2 ML VL ONE (10:27)
[2017-12-27] MEDS ORDERED: ANGIOMAX 250 MG VIAL IV ONE (10:27)
[2017-12-27 12:18] VITALS: BP 143/77
[2017-12-27] MEDS: CITALOPRAM HYDROBR 20 MG TAB PO SCH (13:23)
[2017-12-27] MEDS: LEVOTHYROXINE SODIUM 50 MCG TAB PO SCH (13:24)
[2017-12-27] MEDS: GABAPENTIN 100 MG CAP PO SCH (13:25)
[2017-12-27] MEDS: MONTELUKAST SODIUM 10 MG TAB PO SCH (13:25)
[2017-12-27] MEDS: LOSARTAN POTASSIUM 50 MG TAB PO SCH (13:26)
[2017-12-27] MEDS: METOPROLOL TARTRATE 25 MG TAB PO SCH (13:26)
[2017-12-27] MEDS: ASPirin 81 mg TAB PO SCH (13:28)
[2017-12-27 14:21] VITALS: BP 143/77
[2017-12-27] MEDS: RIVAROXABAN 20 MG TAB PO SCH (18:09)
== END 2017-12-27 19:15 | disposition home or self-care (01) | DRG 286 ==
LOC: EDBD 04:19 → ER 04:21 → TELE 04:22 → TELE-EAST 15:38
PROVIDERS: ADMIT Internal Medicine; ATTEND Internal Medicine
PROC: 4A023N7 Measurement of Cardiac Sampling and Pressure, Left Heart, Percutaneous Approach (ICD-10-PCS; principal; 2017-12-27)
PROC: B2111ZZ Fluoroscopy of Multiple Coronary Arteries using Low Osmolar Contrast (ICD-10-PCS; 2017-12-27)
PROC: B2151ZZ Fluoroscopy of Left Heart using Low Osmolar Contrast (ICD-10-PCS; 2017-12-27)
DX: I13.0 Hypertensive heart and chronic kidney disease with heart failure and stage 1 through stage 4 chronic kidney disease, or unspecified chronic kidney disease (principal); I50.33 Acute on chronic diastolic (congestive) heart failure; E44.0 Moderate protein-calorie malnutrition; D68.69 Other thrombophilia; E11.22 Type 2 diabetes mellitus with diabetic chronic kidney disease; E66.01 Morbid (severe) obesity due to excess calories; Z68.41 Body mass index [BMI] 40.0-44.9, adult; N18.3 Chronic kidney disease, stage 3 (moderate); I48.91 Unspecified atrial fibrillation; F03.90 Unspecified dementia, unspecified severity, without behavioral disturbance, psychotic disturbance, mood disturbance, and anxiety; E03.9 Hypothyroidism, unspecified; M10.9 Gout, unspecified; J45.909 Unspecified asthma, uncomplicated; Z79.82 Long term (current) use of aspirin; Z82.49 Family history of ischemic heart disease and other diseases of the circulatory system; Z90.49 Acquired absence of other specified parts of digestive tract; Z90.710 Acquired absence of both cervix and uterus; Z79.899 Other long term (current) drug therapy
CPT/HCPCS: 36415; 71045; 80048; 80053; 80061; 82962; 83036; 83735; 83880; 84443; 84484; 85025; 85379; 85610; 85652; 85730; 86141; 86850; 86900; 86901; 93005; 93017; 93306; 93458; 99152; 99291; J0153; J1815; J2250

== ENCOUNTER 2019-05-01 12:17 | Emergency (ER) | payer MEDICARE, MEDICAID ==
[~2019-05-01] VITALS: Ht 152.4 cm; Wt 93.0 kg
[~2019-05-01 12:17] MED LIST changes: -ALBU18 IN; +ALBUAER3 IN; +ALEN35TA18 PO; -ALEN70TA55 PO; -ALL100T PO; +ALLO300T2 PO; +ASCO500T11 PO; -ASPI81CH43 GT; +CHOL20007 PO; -DICL1GEL26 TD; +DONE5TAB31 PO; +FER325T PO; +FURO1TAB31 PO; -FURO20TA3 PO; -GABA100C9 PO; -GLIP-115 PO; +GLIP5TAB12 PO; -HYDR-392 PO; +HYDR-4833 PO; -LEV50T PO; -LOSA50TA6 PO; +OMEG306C PO; -[UNRECOGNIZED DRUG - CODE] TOP
[2019-05-01 13:17] LABS: Basophils # (auto) 0 uL; Basophils % (auto) 0.5 % (0.0-2.0); Eosinophils # (auto) 0.1 uL; Eosinophils % (auto) 1.5 % (0.0-7.0); Hemoglobin 12.2 g/dL (12.2-16.2); Lymphocytes # (auto) 1.6 uL; Lymphocytes % (auto) 22.6 % (10.0-50.0); Mean Corpuscular Hemoglobin 32.5 pg (28.0-32.0); Mean Corpuscular Volume 98.5 fL (80.0-100.0); Monocytes # (auto) 0.6 uL; Monocytes % (auto) 8.1 % (0.0-12.0); Neutrophils # (auto) 4.8 uL; Neutrophils % (auto) 67.3 % (37.0-80.0); Platelet Count (auto) 156 10^3/uL (140-450); Red Blood Cells 3.76 10^6/uL (4.0-5.20); Red Cell Distribution Width 15.7 % (11.8-14.3); White Blood Cell 7.1 10^3/uL (4.4-10.8)
[2019-05-01 13:37] LABS: INR 1.29 (0.9-1.15)
[2019-05-01 13:45] LABS: Albumin 2.8 g/dL (3.4-5.0); Calcium 9.5 mg/dL (8.5-10.1); Potassium 3.2 mmol/L (3.5-5.1)
[2019-05-01 13:49] LABS: BUN/Creatinine Ratio 30.9; Bilirubin, Total 0.6 mg/dL (0.2-1.0); Total Protein 6.5 g/dL (6.4-8.2)
[2019-05-01 16:05] VITALS: BP 142/62
[2019-05-01] MEDS ORDERED: SODIUM CHLORIDE 0.9% 1,000 ML IV ONE (16:07)
[2019-05-01] MEDS ORDERED: POTASSIUM EFFERVESENT TAB 25 MEQ PO ONE (17:45)
== END 2019-05-01 17:52 | disposition home or self-care (01) ==
LOC: ER 12:31
DX: S50.12XA Contusion of left forearm, initial encounter (principal); S50.11XA Contusion of right forearm, initial encounter; E87.6 Hypokalemia; E11.21 Type 2 diabetes mellitus with diabetic nephropathy; E11.65 Type 2 diabetes mellitus with hyperglycemia; E46 Unspecified protein-calorie malnutrition; I48.91 Unspecified atrial fibrillation; I25.10 Atherosclerotic heart disease of native coronary artery without angina pectoris; J44.9 Chronic obstructive pulmonary disease, unspecified; E78.5 Hyperlipidemia, unspecified; E07.9 Disorder of thyroid, unspecified; E11.22 Type 2 diabetes mellitus with diabetic chronic kidney disease; I13.0 Hypertensive heart and chronic kidney disease with heart failure and stage 1 through stage 4 chronic kidney disease, or unspecified chronic kidney disease; N18.9 Chronic kidney disease, unspecified; I50.9 Heart failure, unspecified; Z79.01 Long term (current) use of anticoagulants; Z68.41 Body mass index [BMI] 40.0-44.9, adult; Z79.899 Other long term (current) drug therapy; Z79.84 Long term (current) use of oral hypoglycemic drugs; Z86.73 Personal history of transient ischemic attack (TIA), and cerebral infarction without residual deficits; Z90.710 Acquired absence of both cervix and uterus; X58.XXXA Exposure to other specified factors, initial encounter; Y93.89 Activity, other specified; Y99.8 Other external cause status; Y92.89 Other specified places as the place of occurrence of the external cause
CPT/HCPCS: 36415; 71045; 80053; 84443; 85025; 85610; 85730; 96360; 96361; 99284; J7030

== ENCOUNTER 2019-07-04 10:34 | Emergency (ER) | payer MEDICARE, MEDICAID ==
[~2019-07-04] VITALS: Ht 157.5 cm; Wt 81.6 kg
[2019-07-04 13:40] LABS: Basophils # (auto) 0.1 uL; Basophils % (auto) 0.8 % (0.0-2.0); Eosinophils # (auto) 0.1 uL; Eosinophils % (auto) 0.9 % (0.0-7.0); Hematocrit 46.1 % (36.0-46.0); Hemoglobin 15.5 g/dL (12.2-16.2); Lymphocytes # (auto) 2.7 uL; Lymphocytes % (auto) 22.1 % (10.0-50.0); Mean Corpuscular Hemoglobin 32.8 pg (28.0-32.0); Mean Corpuscular Hgb Conc. 33.6 g/dL (32.0-36.0); Mean Corpuscular Volume 97.7 fL (80.0-100.0); Monocytes # (auto) 1.2 uL; Monocytes % (auto) 9.8 % (0.0-12.0); Neutrophils # (auto) 8.2 uL; Neutrophils % (auto) 66.4 % (37.0-80.0); Platelet Count (auto) 141 10^3/uL (140-450); Red Blood Cells 4.72 10^6/uL (4.0-5.20); Red Cell Distribution Width 15.4 % (11.8-14.3); White Blood Cell 12.4 10^3/uL (4.4-10.8)
[2019-07-04 14:00] VITALS: BP 145/68
== END 2019-07-04 16:53 | disposition home or self-care (01) ==
LOC: EDBD 10:34 → ER 10:34
DX: S00.83XA Contusion of other part of head, initial encounter (principal); R55 Syncope and collapse; E11.22 Type 2 diabetes mellitus with diabetic chronic kidney disease; I13.0 Hypertensive heart and chronic kidney disease with heart failure and stage 1 through stage 4 chronic kidney disease, or unspecified chronic kidney disease; N18.3 Chronic kidney disease, stage 3 (moderate); I50.89 Other heart failure; E44.1 Mild protein-calorie malnutrition; E11.21 Type 2 diabetes mellitus with diabetic nephropathy; N39.0 Urinary tract infection, site not specified; J44.9 Chronic obstructive pulmonary disease, unspecified; E78.5 Hyperlipidemia, unspecified; Z90.710 Acquired absence of both cervix and uterus; Z68.32 Body mass index [BMI] 32.0-32.9, adult; Z86.73 Personal history of transient ischemic attack (TIA), and cerebral infarction without residual deficits; Z79.899 Other long term (current) drug therapy; W18.39XA Other fall on same level, initial encounter; Y93.89 Activity, other specified; Y92.89 Other specified places as the place of occurrence of the external cause; Y99.8 Other external cause status
CPT/HCPCS: 36415; 70450; 70486; 71250; 72125; 85025; 93970

== ENCOUNTER 2020-01-20 16:58 | Inpatient (IN) | payer MEDICARE, MEDICAID ==
[~2020-01-20] VITALS: Ht 157.5 cm; Wt 96.7 kg
[2020-01-20] MEDS ORDERED: PIPERACILLIN-TAZOB 3.375GM 100 ML IV ONE (18:00)
[2020-01-20 18:27] LABS: Basophils # (auto) 0.1 10 ^3/uL (0-0.2); Basophils % (auto) 0.7 % (0.0-2.0); Eosinophils # (auto) 0.2 10 ^3/uL (0-0.8); Eosinophils % (auto) 1.8 % (0.0-7.0); Hemoglobin 12.4 g/dL (12.2-16.2); Lymphocytes # (auto) 1.6 10 ^3/uL (0.4-5.4); Lymphocytes % (auto) 18.5 % (10.0-50.0); Mean Corpuscular Hemoglobin 32.3 pg (28.0-32.0); Mean Corpuscular Hgb Conc. 32.6 g/dL (32.0-36.0); Mean Corpuscular Volume 99.1 fL (80.0-100.0); Monocytes # (auto) 0.9 10 ^3/uL (0-1.3); Monocytes % (auto) 10.4 % (0.0-12.0); Neutrophils # (auto) 6.1 10 ^3/uL (1.6-8.6); Neutrophils % (auto) 68.6 % (37.0-80.0); Platelet Count (auto) 210 10^3/uL (140-450); Red Blood Cells 3.84 10^6/uL (4.0-5.20); Red Cell Distribution Width 15.7 % (11.8-14.3); White Blood Cell 8.9 10^3/uL (4.4-10.8)
[2020-01-20 19:03] LABS: Albumin 2.9 g/dL (3.4-5.0); Calcium 9.8 mg/dL (8.5-10.1); Potassium 3.4 mmol/L (3.5-5.1)
[2020-01-20 19:05] LABS: BUN/Creatinine Ratio 20.2
[2020-01-20 19:08] LABS: Bilirubin, Total 0.5 mg/dL (0.2-1.0); Total Protein 6.6 g/dL (6.4-8.2)
[2020-01-20] MEDS ORDERED: NITROGLYCERIN 0.4 MG SL TAB SL PRN ×2 (19:15→20:00)
[2020-01-20] MEDS ORDERED: MORPHINE SULF INJ 2 MG/ML SYRINGE 1ML IV PRN (19:15)
[2020-01-20] MEDS ORDERED: MONTELUKAST SODIUM 10 MG TAB PO ONE (19:45)
[2020-01-20] MEDS ORDERED: ALBUTEROL SULF HFA 90MCG INH 200DOSE IN PRN (19:45)
[2020-01-20] MEDS ORDERED: HYDROcodone-ACET 5/325MG TAB PO PRN (19:45)
[2020-01-20] MEDS: SOD CHL 0.45% WITH 20MEQ KCL 1,000 ML IV SCH (19:45)
[2020-01-20] MEDS ORDERED: FUROSEMIDE 100 MG/10ML VIAL IV ONE (19:45)
[2020-01-20] MEDS ORDERED: MONTELUKAST SODIUM 10 MG TAB PO SCH (20:00)
[2020-01-20] MEDS ORDERED: LORazepam 0.5 MG TAB PO PRN (20:00)
[2020-01-20] MEDS ORDERED: DEXTROSE (50%) 50ML SYRG IV PRN (20:00)
[2020-01-20] MEDS ORDERED: ALUM & MAG HYDROX-SIMETH LIQ(MAALOX) 30 ML PO ONE (20:00)
[2020-01-20] MEDS ORDERED: IPRATROPIUM BROM 0.5 MG/2.5ML INH SOL NEB PRN (20:00)
[2020-01-20] MEDS: HYDROcodone-ACET 5/325MG TAB PO PRN (20:25)
[2020-01-20] MEDS: FERROUS SULFATE 325 MG TAB PO SCH (21:47)
[2020-01-20] MEDS: ATORVASTATIN 20 MG TAB PO SCH (21:47)
[2020-01-20] MEDS: ASCORBIC ACID 500 MG TAB PO SCH (21:47)
[2020-01-20] MEDS: CARVEDILOL 3.125 MG TAB PO SCH (21:48)
[2020-01-20 22:00] VITALS: BP 138/60
[2020-01-20] MEDS ORDERED: ATORVASTATIN 20 MG TAB PO SCH (22:00)
[2020-01-20] MEDS ORDERED: InsuLIN REG 1unit/0.01ml Soln (100units/ml) SC SCH (22:00)
[2020-01-20] MEDS ORDERED: BACLOFEN 10 MG TAB PO PRN (22:00)
[2020-01-20] MEDS: ACCU-CHEK COMFORT CURVE STRIP VI SCH (22:12)
[2020-01-20] MEDS: INSULIN 70/30 1unit/0.01ml Susp (100units/ml) SC SCH (22:17)
[2020-01-21] MEDS ORDERED: ALBUTEROL SULF 2.5 MG/0.5ML(0.5%) NEB SOLN NEB PRN (02:00)
[2020-01-21 03:49] VITALS: BP 138/60
[2020-01-21] MEDS: SOD CHL 0.45% WITH 20MEQ KCL 1,000 ML IV SCH (04:14)
[2020-01-21 05:10] VITALS: BP 128/65
[2020-01-21] MEDS: FUROSEMIDE 20 MG/2 ML VIAL IV SCH ×2 (05:16→17:41)
[2020-01-21] MEDS: ASCORBIC ACID 500 MG TAB PO SCH ×3 (05:17→22:50)
[2020-01-21 06:21] LABS: Basophils # (auto) 0 10 ^3/uL (0-0.2); Basophils % (auto) 0.8 % (0.0-2.0); Eosinophils # (auto) 0.3 10 ^3/uL (0-0.8); Eosinophils % (auto) 4.1 % (0.0-7.0); Hematocrit 34.6 % (36.0-46.0); Hemoglobin 11.3 g/dL (12.2-16.2); Lymphocytes # (auto) 1.8 10 ^3/uL (0.4-5.4); Lymphocytes % (auto) 29.3 % (10.0-50.0); Mean Corpuscular Hemoglobin 32.1 pg (28.0-32.0); Mean Corpuscular Hgb Conc. 32.5 g/dL (32.0-36.0); Mean Corpuscular Volume 98.8 fL (80.0-100.0); Monocytes # (auto) 0.7 10 ^3/uL (0-1.3); Monocytes % (auto) 11.9 % (0.0-12.0); Neutrophils # (auto) 3.4 10 ^3/uL (1.6-8.6); Neutrophils % (auto) 53.9 % (37.0-80.0); Platelet Count (auto) 180 10^3/uL (140-450); Red Cell Distribution Width 15.4 % (11.8-14.3); White Blood Cell 6.2 10^3/uL (4.4-10.8)
[2020-01-21 06:24] LABS: INR 1.02 (0.9-1.15); Partial Thromboplastin Time 28.8 sec (23.64-32.05)
[2020-01-21 06:36] LABS: Potassium 3.3 mmol/L (3.5-5.1)
[2020-01-21] MEDS: ACCU-CHEK COMFORT CURVE STRIP VI SCH ×3 (06:36→17:38)
[2020-01-21] MEDS: InsuLIN REG 1unit/0.01ml Soln (100units/ml) SC SCH ×3 (06:36→17:30)
[2020-01-21 06:48] LABS: Cholesterol 109 mg/dL (< 200); HDL Cholesterol 37 mg/dL (40-59); LDL Cholesterol 57 mg/dL (< 100); Triglycerides 101 mg/dL (< 150)
[2020-01-21 06:50] LABS: Albumin 2.6 g/dL (3.4-5.0); BUN/Creatinine Ratio 19.8; Bilirubin, Total 0.6 mg/dL (0.2-1.0); Calcium 8.9 mg/dL (8.5-10.1); Magnesium 2.2 mg/dL (1.6-2.6); Phosphorus 3.4 mg/dL (2.5-4.90)
[2020-01-21 06:59] LABS: Ferritin 144.9 ng/mL (10-322); Folate (Folic Acid) 11.15 ng/mL (5.38-24)
[2020-01-21 08:56] VITALS: BP 121/55
[2020-01-21] MEDS ORDERED: LISINOPRIL 5 MG TAB PO SCH (10:00)
[2020-01-21] MEDS ORDERED: OLANZapine 5 MG TAB PO SCH (10:00)
[2020-01-21] MEDS: RIVAROXABAN 20 MG TAB PO SCH (10:22)
[2020-01-21] MEDS: ALLOPURINOL 300 MG TAB PO SCH (10:22)
[2020-01-21] MEDS: CITALOPRAM HYDROBR 20 MG TAB PO SCH (10:23)
[2020-01-21] MEDS: DONEPEZIL HYDROCHLORIDE 5 MG TAB PO SCH (10:23)
[2020-01-21] MEDS: DOCUSATE SOD 100 MG CAP PO SCH (10:23)
[2020-01-21] MEDS: ASPirin 81 mg TAB PO SCH (10:23)
[2020-01-21] MEDS: FERROUS SULFATE 325 MG TAB PO SCH ×2 (10:23→22:50)
[2020-01-21] MEDS: CARVEDILOL 3.125 MG TAB PO SCH ×2 (10:23→22:51)
[2020-01-21] MEDS: INSULIN 70/30 1unit/0.01ml Susp (100units/ml) SC SCH (10:25)
[2020-01-21 13:19] VITALS: BP 121/60
[2020-01-21 16:28] VITALS: BP 113/47
[2020-01-21 22:00] VITALS: BP 125/56
[2020-01-21] MEDS ORDERED: CLINDAMYCIN 300MG IV 50 ML IV ONE (22:15)
[2020-01-21] MEDS ORDERED: LORazepam 0.5 MG TAB PO PRN (22:15)
[2020-01-21] MEDS ORDERED: levoFLOXacin 500MG 100 ML IV ONE (22:15)
[2020-01-21] MEDS: ATORVASTATIN 20 MG TAB PO SCH (22:50)
[2020-01-21] MEDS: MONTELUKAST SODIUM 10 MG TAB PO SCH (22:50)
[2020-01-22 04:39] VITALS: BP 128/57
[2020-01-22] MEDS ORDERED: CLINDAMYCIN 300MG IV 50 ML IV SCH (06:00)
[2020-01-22] MEDS: ASCORBIC ACID 500 MG TAB PO SCH ×3 (06:38→22:49)
[2020-01-22 07:06] LABS: RPR Non Reactive (Non Reactive)
[2020-01-22 08:56] LABS: Calcium 9.5 mg/dL (8.5-10.1)
[2020-01-22 09:01] LABS: BUN/Creatinine Ratio 19.8
[2020-01-22] MEDS ORDERED: POTASSIUM CHL 20 Meq TABLET PO SCH (10:00)
[2020-01-22] MEDS ORDERED: FUROSEMIDE 40 MG TAB PO SCH (10:00)
[2020-01-22] MEDS: RIVAROXABAN 20 MG TAB PO SCH (10:06)
[2020-01-22] MEDS: CHOLECALCIFEROL (VITD3) 1,000IU=25mCg TAB PO SCH (10:06)
[2020-01-22] MEDS: PANTOPRAZOLE 40 MG TAB PO SCH (10:06)
[2020-01-22] MEDS: DONEPEZIL HYDROCHLORIDE 5 MG TAB PO SCH (10:06)
[2020-01-22] MEDS: ASPirin 81 mg TAB PO SCH (10:06)
[2020-01-22] MEDS: ALLOPURINOL 300 MG TAB PO SCH (10:06)
[2020-01-22] MEDS: DOCUSATE SOD 100 MG CAP PO SCH (10:07)
[2020-01-22] MEDS: CITALOPRAM HYDROBR 20 MG TAB PO SCH (10:08)
[2020-01-22] MEDS: CARVEDILOL 3.125 MG TAB PO SCH ×2 (10:08→22:00)
[2020-01-22] MEDS: FERROUS SULFATE 325 MG TAB PO SCH ×2 (10:08→22:48)
[2020-01-22] MEDS ORDERED: VANCOMYCIN PER PHARMACY 0 MG IV SCH (10:45)
[2020-01-22] MEDS ORDERED: VANCOMYCIN 1GM/250ML 250 ML IV ONE (12:00)
[2020-01-22 12:44] VITALS: BP 135/65
[2020-01-22 17:00] VITALS: BP 133/59
[2020-01-22] MEDS: HYDROcodone-ACET 5/325MG TAB PO PRN (20:05)
[2020-01-22 21:52] VITALS: BP 153/64
[2020-01-22] MEDS ORDERED: levoFLOXacin 500MG 100 ML IV SCH (22:00)
[2020-01-22] MEDS: MONTELUKAST SODIUM 10 MG TAB PO SCH (22:48)
[2020-01-22] MEDS: ATORVASTATIN 20 MG TAB PO SCH (22:48)
[2020-01-22] MEDS ORDERED: KETOROLAC TROMETH 15 mg/ml 1ML VL IV ONE (23:00)
[2020-01-23] VITALS (7 sets, daily range): BP systolic 121–145; BP diastolic 50–76
[2020-01-23 06:13] LABS: BUN/Creatinine Ratio 22.6; Calcium 9.5 mg/dL (8.5-10.1); Potassium 3.9 mmol/L (3.5-5.1)
[2020-01-23] MEDS: ASCORBIC ACID 500 MG TAB PO SCH ×3 (06:55→22:21)
[2020-01-23] MEDS ORDERED: ALENDRONATE SODIUM 10 MG TAB PO SCH (07:00)
[2020-01-23] MEDS ORDERED: ADENOSINE 100 MG in GIVE UN-DILUTED 0 ML IV ONE (08:30)
[2020-01-23] MEDS: FERROUS SULFATE 325 MG TAB PO SCH ×2 (09:53→22:21)
[2020-01-23] MEDS: ASPirin 81 mg TAB PO SCH (09:53)
[2020-01-23] MEDS: DONEPEZIL HYDROCHLORIDE 5 MG TAB PO SCH (09:54)
[2020-01-23] MEDS: CITALOPRAM HYDROBR 20 MG TAB PO SCH (09:54)
[2020-01-23] MEDS: DOCUSATE SOD 100 MG CAP PO SCH (09:54)
[2020-01-23] MEDS: PANTOPRAZOLE 40 MG TAB PO SCH (09:54)
[2020-01-23] MEDS: CHOLECALCIFEROL (VITD3) 1,000IU=25mCg TAB PO SCH (09:55)
[2020-01-23] MEDS: RIVAROXABAN 20 MG TAB PO SCH (09:55)
[2020-01-23] MEDS: ALLOPURINOL 300 MG TAB PO SCH (09:55)
[2020-01-23] MEDS: CARVEDILOL 3.125 MG TAB PO SCH ×2 (10:00→22:21)
[2020-01-23] MEDS ORDERED: VANCOMYCIN 750mg/250ml 250 ML IV SCH (12:00)
[2020-01-23] MEDS: HYDROcodone-ACET 5/325MG TAB PO PRN ×2 (13:17→17:08)
[2020-01-23] MEDS ORDERED: SODIUM CHLORIDE 0.9% 1,000 ML IV ONE (13:45)
[2020-01-23] MEDS: DAKINS HALF STR 0.25% (NaHypochlorite) 473 ML TOPICAL SOL TOP SCH ×2 (15:11→22:23)
[2020-01-23] MEDS: MONTELUKAST SODIUM 10 MG TAB PO SCH (22:20)
[2020-01-23] MEDS: ATORVASTATIN 20 MG TAB PO SCH (22:21)
[2020-01-24] MEDS: HYDROcodone-ACET 5/325MG TAB PO PRN ×3 (03:07→21:56)
[2020-01-24 05:00] VITALS: BP 133/64
[2020-01-24] MEDS: ASCORBIC ACID 500 MG TAB PO SCH ×3 (05:43→21:53)
[2020-01-24 07:51] LABS: Basophils # (auto) 0 10 ^3/uL (0-0.2); Basophils % (auto) 0.5 % (0.0-2.0); Eosinophils # (auto) 0.2 10 ^3/uL (0-0.8); Hematocrit 34.7 % (36.0-46.0); Hemoglobin 11.2 g/dL (12.2-16.2); Lymphocytes # (auto) 1.9 10 ^3/uL (0.4-5.4); Lymphocytes % (auto) 29.1 % (10.0-50.0); Mean Corpuscular Hemoglobin 32.5 pg (28.0-32.0); Mean Corpuscular Hgb Conc. 32.4 g/dL (32.0-36.0); Mean Corpuscular Volume 100.2 fL (80.0-100.0); Monocytes # (auto) 0.8 10 ^3/uL (0-1.3); Monocytes % (auto) 12.6 % (0.0-12.0); Neutrophils # (auto) 3.5 10 ^3/uL (1.6-8.6); Neutrophils % (auto) 54.8 % (37.0-80.0); Nucleated Red Blood Cells % 0.1 %; Platelet Count (auto) 164 10^3/uL (140-450); Red Blood Cells 3.46 10^6/uL (4.0-5.20); Red Cell Distribution Width 15.6 % (11.8-14.3); White Blood Cell 6.4 10^3/uL (4.4-10.8)
[2020-01-24 08:19] LABS: Calcium 9.6 mg/dL (8.5-10.1); Potassium 4.1 mmol/L (3.5-5.1)
[2020-01-24 08:22] LABS: BUN/Creatinine Ratio 22.4
[2020-01-24 09:07] VITALS: BP 145/70
[2020-01-24] MEDS: CHOLECALCIFEROL (VITD3) 1,000IU=25mCg TAB PO SCH (09:52)
[2020-01-24] MEDS: CARVEDILOL 3.125 MG TAB PO SCH ×2 (09:54→21:55)
[2020-01-24] MEDS: DOCUSATE SOD 100 MG CAP PO SCH (09:55)
[2020-01-24] MEDS: ALLOPURINOL 300 MG TAB PO SCH (09:55)
[2020-01-24] MEDS: FERROUS SULFATE 325 MG TAB PO SCH ×2 (09:55→21:55)
[2020-01-24] MEDS: RIVAROXABAN 20 MG TAB PO SCH (09:55)
[2020-01-24] MEDS: PANTOPRAZOLE 40 MG TAB PO SCH (09:55)
[2020-01-24] MEDS: ASPirin 81 mg TAB PO SCH (09:57)
[2020-01-24] MEDS: CITALOPRAM HYDROBR 20 MG TAB PO SCH (10:14)
[2020-01-24] MEDS: DAKINS HALF STR 0.25% (NaHypochlorite) 473 ML TOPICAL SOL TOP SCH ×2 (10:14→21:58)
[2020-01-24 13:06] VITALS: BP 108/46
[2020-01-24] MEDS: LINEZOLID 600MG/300ML 300 ML IV SCH ×2 (15:02→21:53)
[2020-01-24 16:57] VITALS: BP 123/78
[2020-01-24 21:42] VITALS: BP 112/46
[2020-01-24] MEDS: DONEPEZIL HYDROCHLORIDE 5 MG TAB PO SCH (21:53)
[2020-01-24] MEDS: ATORVASTATIN 20 MG TAB PO SCH (21:55)
[2020-01-24] MEDS: MONTELUKAST SODIUM 10 MG TAB PO SCH (21:55)
[2020-01-25 03:00] VITALS: BP 103/50
[2020-01-25 05:09] VITALS: BP 105/61
[2020-01-25] MEDS: ASCORBIC ACID 500 MG TAB PO SCH ×3 (05:51→22:24)
[2020-01-25 08:29] VITALS: BP 139/70
[2020-01-25 09:14] LABS: Anion Gap 3 (5-15); BUN/Creatinine Ratio 21.3; Blood Urea Nitrogen 23 mg/dL (7-18); Calcium 9.5 mg/dL (8.5-10.1); Carbon Dioxide 29 mmol/L (21-32); Chloride 105 mmol/L (98-107); GFR African American 61 mL/min; GFR Non-African American 51 mL/min; Glucose 144 mg/dL (74-106); Potassium 4.2 mmol/L (3.5-5.1); Sodium 137 mmol/L (136-145)
[2020-01-25] MEDS: RIVAROXABAN 20 MG TAB PO SCH (10:03)
[2020-01-25] MEDS: LINEZOLID 600MG/300ML 300 ML IV SCH ×2 (10:03→22:20)
[2020-01-25] MEDS: HYDROcodone-ACET 5/325MG TAB PO PRN ×4 (10:04→19:41)
[2020-01-25] MEDS: CITALOPRAM HYDROBR 20 MG TAB PO SCH (10:04)
[2020-01-25] MEDS: CHOLECALCIFEROL (VITD3) 1,000IU=25mCg TAB PO SCH (10:04)
[2020-01-25] MEDS: ALLOPURINOL 300 MG TAB PO SCH (10:04)
[2020-01-25] MEDS: PANTOPRAZOLE 40 MG TAB PO SCH (10:04)
[2020-01-25] MEDS: ASPirin 81 mg TAB PO SCH (10:04)
[2020-01-25] MEDS: DOCUSATE SOD 100 MG CAP PO SCH (10:04)
[2020-01-25] MEDS: FERROUS SULFATE 325 MG TAB PO SCH ×2 (10:04→22:23)
[2020-01-25] MEDS: DAKINS HALF STR 0.25% (NaHypochlorite) 473 ML TOPICAL SOL TOP SCH ×2 (10:05→22:24)
[2020-01-25] MEDS: CARVEDILOL 3.125 MG TAB PO SCH ×2 (10:05→22:22)
[2020-01-25 13:02] VITALS: BP 130/66
[2020-01-25 17:28] VITALS: BP 118/61
[2020-01-25 22:00] VITALS: BP 126/64
[2020-01-25] MEDS: ATORVASTATIN 20 MG TAB PO SCH (22:23)
[2020-01-25] MEDS: DONEPEZIL HYDROCHLORIDE 5 MG TAB PO SCH (22:23)
[2020-01-25] MEDS: MONTELUKAST SODIUM 10 MG TAB PO SCH (22:23)
[2020-01-26 05:00] VITALS: BP 119/64
[2020-01-26] MEDS: ASCORBIC ACID 500 MG TAB PO SCH ×2 (06:32→15:30)
[2020-01-26 07:38] LABS: Basophils # (auto) 0 10 ^3/uL (0-0.2); Basophils % (auto) 0.5 % (0.0-2.0); Eosinophils # (auto) 0.2 10 ^3/uL (0-0.8); Eosinophils % (auto) 2.7 % (0.0-7.0); Hematocrit 32.9 % (36.0-46.0); Hemoglobin 10.3 g/dL (12.2-16.2); Lymphocytes % (auto) 33.4 % (10.0-50.0); Mean Corpuscular Hemoglobin 31.9 pg (28.0-32.0); Mean Corpuscular Hgb Conc. 31.2 g/dL (32.0-36.0); Mean Corpuscular Volume 102.1 fL (80.0-100.0); Monocytes # (auto) 0.7 10 ^3/uL (0-1.3); Monocytes % (auto) 11.5 % (0.0-12.0); Neutrophils # (auto) 3.2 10 ^3/uL (1.6-8.6); Neutrophils % (auto) 51.9 % (37.0-80.0); Platelet Count (auto) 170 10^3/uL (140-450); Red Blood Cells 3.22 10^6/uL (4.0-5.20); Red Cell Distribution Width 15.7 % (11.8-14.3); White Blood Cell 6.1 10^3/uL (4.4-10.8)
[2020-01-26 09:09] VITALS: BP 137/68
[2020-01-26] MEDS: LINEZOLID 600MG/300ML 300 ML IV SCH (10:00)
[2020-01-26] MEDS: FERROUS SULFATE 325 MG TAB PO SCH (10:07)
[2020-01-26] MEDS: ASPirin 81 mg TAB PO SCH (10:07)
[2020-01-26] MEDS: CHOLECALCIFEROL (VITD3) 1,000IU=25mCg TAB PO SCH (10:07)
[2020-01-26] MEDS: PANTOPRAZOLE 40 MG TAB PO SCH (10:08)
[2020-01-26] MEDS: CITALOPRAM HYDROBR 20 MG TAB PO SCH (10:08)
[2020-01-26] MEDS: ALLOPURINOL 300 MG TAB PO SCH (10:08)
[2020-01-26] MEDS: RIVAROXABAN 20 MG TAB PO SCH (10:08)
[2020-01-26] MEDS: DOCUSATE SOD 100 MG CAP PO SCH (10:08)
[2020-01-26] MEDS: CARVEDILOL 3.125 MG TAB PO SCH (10:11)
[2020-01-26] MEDS: DAKINS HALF STR 0.25% (NaHypochlorite) 473 ML TOPICAL SOL TOP SCH (10:12)
[2020-01-26 12:54] VITALS: BP 157/77
[2020-01-26] MEDS: HYDROcodone-ACET 5/325MG TAB PO PRN (15:30)
[2020-01-26 17:07] VITALS: BP 157/77
[2020-01-26 17:08] VITALS: BP 154/71
== END 2020-01-26 18:40 | disposition home or self-care (01) | DRG 720 ==
LOC: EDBD 16:58 → ER 16:58 → EDUNIT# 16:58 → TELE 16:59 → TELE-WESTW 20:29
PROVIDERS: ADMIT Hospitalist; ATTEND Internal Medicine
PROC: 0Y9M0ZZ Drainage of Right Foot, Open Approach (ICD-10-PCS; principal; 2020-01-22)
DX: A41.9 Sepsis, unspecified organism (principal); I21.A1 Myocardial infarction type 2; N17.0 Acute kidney failure with tubular necrosis; J96.10 Chronic respiratory failure, unspecified whether with hypoxia or hypercapnia; D68.69 Other thrombophilia; I48.20 Chronic atrial fibrillation, unspecified; N18.3 Chronic kidney disease, stage 3 (moderate); E87.1 Hypo-osmolality and hyponatremia; E44.1 Mild protein-calorie malnutrition; I50.32 Chronic diastolic (congestive) heart failure; L03.115 Cellulitis of right lower limb; J44.9 Chronic obstructive pulmonary disease, unspecified; L02.611 Cutaneous abscess of right foot; M79.89 Other specified soft tissue disorders; E87.6 Hypokalemia; E66.9 Obesity, unspecified; M81.0 Age-related osteoporosis without current pathological fracture; F03.90 Unspecified dementia, unspecified severity, without behavioral disturbance, psychotic disturbance, mood disturbance, and anxiety; I13.0 Hypertensive heart and chronic kidney disease with heart failure and stage 1 through stage 4 chronic kidney disease, or unspecified chronic kidney disease; M10.9 Gout, unspecified; E11.9 Type 2 diabetes mellitus without complications; F41.9 Anxiety disorder, unspecified; I25.10 Atherosclerotic heart disease of native coronary artery without angina pectoris; Z79.899 Other long term (current) drug therapy; Z79.51 Long term (current) use of inhaled steroids; Z79.84 Long term (current) use of oral hypoglycemic drugs; Z82.49 Family history of ischemic heart disease and other diseases of the circulatory system; Z79.01 Long term (current) use of anticoagulants; Z86.73 Personal history of transient ischemic attack (TIA), and cerebral infarction without residual deficits
CPT/HCPCS: 36415; 71250; 73700; 78452; 80048; 80053; 80061; 82565; 82607; 82728; 82746; 82962; 83036; 83605; 83735; 83880; 84100; 84132; 84443; 84484; 85025; 85045; 85610; 85730; 86592; 87040; 87077; 87186; 87205; 93017; 93306; 93971; 97110; 97163; 97530; G0378; J0153; J1815; J1956; J2543; J3490

== ENCOUNTER → 2020-02-06 | Outpatient (CLI) | payer MEDICARE, MEDICAID ==
[~2020-02-06] MED LIST changes: -ALBUAER3 IN; -BACL10TA PO; -FLU220IH IN; -GLIP5TAB12 PO; -HYDR-4833 PO; -MONT10TA34 PO; -OMEG306C PO
[2020-02-06 08:23] LABS: Basophils # (auto) 0.1 10 ^3/uL (0-0.2); Basophils % (auto) 0.8 % (0.0-2.0); Eosinophils # (auto) 0.2 10 ^3/uL (0-0.8); Eosinophils % (auto) 2.7 % (0.0-7.0); Hemoglobin 12.4 g/dL (12.2-16.2); Lymphocytes # (auto) 2.5 10 ^3/uL (0.4-5.4); Lymphocytes % (auto) 29.6 % (10.0-50.0); Mean Corpuscular Hemoglobin 31.6 pg (28.0-32.0); Mean Corpuscular Hgb Conc. 31.9 g/dL (32.0-36.0); Mean Corpuscular Volume 98.9 fL (80.0-100.0); Monocytes # (auto) 0.7 10 ^3/uL (0-1.3); Monocytes % (auto) 8.3 % (0.0-12.0); Neutrophils # (auto) 4.9 10 ^3/uL (1.6-8.6); Neutrophils % (auto) 58.6 % (37.0-80.0); Nucleated Red Blood Cells % 0.4 %; Platelet Count (auto) 251 10^3/uL (140-450); Red Blood Cells 3.94 10^6/uL (4.0-5.20); Red Cell Distribution Width 15.2 % (11.8-14.3); White Blood Cell 8.4 10^3/uL (4.4-10.8)
[2020-02-06 08:32] LABS: INR 1.21 (0.9-1.15); Partial Thromboplastin Time 36.5 sec (23.64-32.05)
[2020-02-06 08:39] LABS: Potassium 3.4 mmol/L (3.5-5.1)
[2020-02-06 08:44] LABS: BUN/Creatinine Ratio 24.5; Bilirubin, Total 0.6 mg/dL (0.2-1.0); Total Protein 6.7 g/dL (6.4-8.2)
[2020-02-06 08:46] LABS: % Iron Saturation 26.4 % (15-50)
== END | disposition home or self-care (01) ==
LOC: LAB 07:22
DX: E75.6 Lipid storage disorder, unspecified (principal); E55.9 Vitamin D deficiency, unspecified; E66.9 Obesity, unspecified; D50.9 Iron deficiency anemia, unspecified; E11.9 Type 2 diabetes mellitus without complications; Z79.01 Long term (current) use of anticoagulants
CPT/HCPCS: 36415; 80053; 80061; 82306; 83036; 83540; 83550; 84443; 85025; 85610; 85730

== ENCOUNTER → 2020-02-28 | Outpatient (CLI) | payer MEDICARE, MEDICAID ==
[2020-02-28 09:20] LABS: Calcium 9.6 mg/dL (8.5-10.1); Potassium 3.2 mmol/L (3.5-5.1)
[2020-02-28 09:25] LABS: BUN/Creatinine Ratio 22.1; Bilirubin, Total 0.6 mg/dL (0.2-1.0); Total Protein 6.6 g/dL (6.4-8.2)
[2020-02-28 09:29] LABS: % Iron Saturation 20.4 % (15-50)
[2020-02-28 09:41] LABS: Folate (Folic Acid) 19.24 ng/mL (5.38-24)
== END | disposition home or self-care (01) ==
LOC: LAB 08:10
DX: E11.9 Type 2 diabetes mellitus without complications (principal); E66.01 Morbid (severe) obesity due to excess calories; M10.9 Gout, unspecified; D50.9 Iron deficiency anemia, unspecified; E75.6 Lipid storage disorder, unspecified; E55.9 Vitamin D deficiency, unspecified; I21.A1 Myocardial infarction type 2
CPT/HCPCS: 36415; 80053; 80061; 82043; 82306; 82607; 82746; 83036; 83540; 83550; 83880; 84443; 84550

== ENCOUNTER → 2020-03-31 | Outpatient (CLI) | payer MEDICARE, MEDICAID ==
[2020-03-31 10:23] LABS: Basophils # (auto) 0 10 ^3/uL (0-0.2); Basophils % (auto) 0.1 % (0.0-2.0); Eosinophils # (auto) 0.1 10 ^3/uL (0-0.8); Eosinophils % (auto) 1.2 % (0.0-7.0); Hemoglobin 13.3 g/dL (12.2-16.2); Lymphocytes % (auto) 21.4 % (10.0-50.0); Mean Corpuscular Hemoglobin 31.1 pg (28.0-32.0); Mean Corpuscular Hgb Conc. 32.4 g/dL (32.0-36.0); Monocytes # (auto) 0.8 10 ^3/uL (0-1.3); Monocytes % (auto) 8.8 % (0.0-12.0); Neutrophils # (auto) 6.5 10 ^3/uL (1.6-8.6); Neutrophils % (auto) 68.5 % (37.0-80.0); Platelet Count (auto) 170 10^3/uL (140-450); Red Blood Cells 4.26 10^6/uL (4.0-5.20); Red Cell Distribution Width 16.6 % (11.8-14.3); White Blood Cell 9.4 10^3/uL (4.4-10.8)
[2020-03-31 11:03] LABS: % Iron Saturation 17.7 % (15-50)
[2020-03-31 11:04] LABS: Albumin 3.4 g/dL (3.4-5.0); Calcium 9.7 mg/dL (8.5-10.1); Potassium 3.3 mmol/L (3.5-5.1)
[2020-03-31 11:10] LABS: BUN/Creatinine Ratio 29.6; Bilirubin, Total 0.8 mg/dL (0.2-1.0); Total Protein 6.9 g/dL (6.4-8.2); Uric Acid 3.7 mg/dL (2.6-6.0)
== END | disposition home or self-care (01) ==
LOC: LAB 09:38
DX: E11.9 Type 2 diabetes mellitus without complications (principal); K92.1 Melena; D50.9 Iron deficiency anemia, unspecified; E75.6 Lipid storage disorder, unspecified; M25.50 Pain in unspecified joint
CPT/HCPCS: 36415; 80053; 83540; 83550; 84550; 85025

== ENCOUNTER → 2020-04-06 | Outpatient (CLI) | payer MEDICARE | END | disposition home or self-care (01) | LOC: LAB 13:14 | DX: E11.9 Type 2 diabetes mellitus without complications (principal); D50.9 Iron deficiency anemia, unspecified; K92.1 Melena; E75.6 Lipid storage disorder, unspecified; M25.50 Pain in unspecified joint | CPT/HCPCS: 82270 ==